=== PATIENT | male | born 1970 | race Caucasian/White ===

== ENCOUNTER → 2018-06-14 | Outpatient (CLI) | payer OTHER | END | disposition home or self-care (01) | LOC: CT 08:44 | PROC: B922ZZZ Computerized Tomography (CT Scan) of Paranasal Sinuses (ICD-10-PCS; principal; 2018-06-14) | DX: J32.9 Chronic sinusitis, unspecified (principal) ==

== ENCOUNTER 2019-04-07 13:06 | Emergency (ER) | payer OTHER ==
[~2019-04-07] VITALS: Ht 172.7 cm; Wt 91.6 kg
[2019-04-07 13:23] VITALS: Ht 172.7 cm; Wt 91.6 kg
[2019-04-07 15:27] VITALS: BP 128/77
== END 2019-04-07 15:27 | disposition home or self-care (01) ==
LOC: ED 13:06
DX: J40 Bronchitis, not specified as acute or chronic (principal); J45.909 Unspecified asthma, uncomplicated; E03.9 Hypothyroidism, unspecified; E78.5 Hyperlipidemia, unspecified
CPT/HCPCS: J1100